=== PATIENT | female | born 1995 | race Caucasian/White ===

== ENCOUNTER 2016-09-22 15:46 | Emergency (ER) | payer MEDICAID ==
--- NOTE | 2016-09-22 22:12 | ER ---
ADMIT: 09/22/2016 RM/LOC: ER [facility] MR#: [id number] [address] [address] JOO DOMINIQUE [address] [place] [address] Emergency Room Report SEX: F AGE: 21 : 1995 DATE: 09/22/2016 HISTORY OF PRESENT ILLNESS: The patient is a 21-year-old female with past medical history of mood disorder, on Seroquel; came to the ER with chief complaint of lightheadedness while working long hours. The patient states she is 18 weeks and should be followed up by Clinic. The patient denies any fall, chest pain, shortness of breath, palpitation, vaginal bleeding or vaginal discharge, dysuria, urgency, frequency, passage of tissue from the vagina. The patient also denies any swelling of the extremities. PHYSICAL EXAMINATION: VITAL SIGNS: The patient has stable vitals, in no pain or distress, lying flat, afebrile. HEAD AND NECK: Normal. CHEST: Clear with normal heart sounds. ABDOMEN: Soft. The patient had heart rate which was normal. No swelling in the lower extremities. Urine was positive for multiple white blood cell, suggestive of urinary tract infection. The patient tolerated p.o., was in no distress. The patient was discharged to home with return precautions, prescription for Keflex p.o. and follow up with the primary doctor and Care. Gideon Archer MD/ gordon JOB #: [id number] CC: Mick Woods MD, Attending Physician Charlette Graham, PROGRAM WRITER-SHOWROOM SALESPERSON, Family Physician
== END 2016-09-22 17:10 | disposition home or self-care (01) ==
LOC: ER 15:46
DX: O23.42 Unspecified infection of urinary tract in pregnancy, second trimester (principal); R55 Syncope and collapse; O99.332 Smoking (tobacco) complicating pregnancy, second trimester; Z3A.18 18 weeks gestation of pregnancy; Z79.899 Other long term (current) drug therapy

== ENCOUNTER 2016-09-26 22:11 | Emergency (ER) | payer MEDICAID ==
--- NOTE | 2016-09-27 19:08 | ER ---
ADMIT: 09/26/2016 RM/LOC: ER [facility] MR#: [id number] [address] [address] JOO DOMINIQUE [address] [place] [address] Emergency Room Report SEX: F AGE: 21 : 1995 DATE: 09/26/2016 HISTORY OF PRESENT ILLNESS: The patient is a 19-week female, who had been recently treated for UTI with cephalexin, but she thinks that she still have the infection. She has had some nausea and vomiting throughout her , was given Unisom and vitamin B6, but it has not helped her much. REVIEW OF SYSTEMS: She has problems urinating. She takes Seroquel. She is a smoker 1/4 pack a day. PHYSICAL EXAMINATION: ABDOMEN: No tenderness in the belly except on the right upper quadrant. SKIN: Good color and turgor. EXTREMITIES: Well perfused. NEUROLOGIC: Oriented x4. VITAL SIGNS: Within normal limits. CLINICAL IMPRESSION: 1. Urinary tract infection. 2. Hyperemesis. Given Zofran ODT and also nitrofurantoin. Discharged home with instruction. See T-sheet. LA NENA Salinas / Adan Archer MD / sheylal JOB #: [id number] CC: Adan Archer MD, Attending Physician Charlette Graham, Family Physician
== END 2016-09-27 00:40 | disposition home or self-care (01) ==
LOC: ER 22:11
DX: O23.42 Unspecified infection of urinary tract in pregnancy, second trimester (principal); O21.0 Mild hyperemesis gravidarum; O99.332 Smoking (tobacco) complicating pregnancy, second trimester; Z3A.19 19 weeks gestation of pregnancy; Z79.899 Other long term (current) drug therapy

== ENCOUNTER 2016-12-31 15:00 | Outpatient (CLI) | payer MEDICAID ==
[~2016-12-31] VITALS: Ht 160 cm; Wt 78.5 kg
--- NOTE | 2017-01-14 07:37 | HP ---
ADMIT: 12/31/2016 RM/LOC: 214 [facility] MR#: [id number] [address] [address] JENNIFER JOO BRODERICK Cleo [address] [place] [address] History and Physical SEX: F AGE: 21 : 1995 DATE OF SERVICE: CHIEF COMPLAINT: Green vaginal discharge. HISTORY OF PRESENT ILLNESS: The patient is a 21-year-old, 1 female at 33 weeks' gestation, who [facility] with green vaginal discharge apparently in copious amounts. She was evaluated for possible leakage of fluid with meconium staining fluid and had a negative AmniSure. We did a cath UA as well as she had just gotten off antibiotics for a UTI and that was normal. While here, she started having contractions and complaining of more pain and was rating them a 6/10. Have not really settled down with oral or IV hydration. She has not had any spotting or bloody show. Baby has been very active. 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 She was brought to court though and has been on drug court since and has not used since she found out she was . She has been getting care through the [facility] with Dr. Lara and nurse practitioner there. States she has had a normal course. We do not have any of those records, however. She is otherwise in good health. MEDICATIONS: vitamins. ALLERGIES: NO KNOWN DRUG ALLERGIES. SOCIAL HISTORY: Again, the drug use in the first trimester. Apparently, she was in [facility] for speaking with her fiance, who is the father of the baby. They actually released her from custody while she has been here this evening. REVIEW OF SYSTEMS: Negative other than the above. PHYSICAL EXAMINATION: VITAL SIGNS: The patient is afebrile. Vitals are all normal. Cervix is closed. No blood is noted. No pooling of fluid. She does have a whitish green vaginal discharge, and the vaginal mucosa looks a little inflamed. She is marcy irregular on tocometry and rates about a 6/10. ADMIT: 12/31/2016 RM/LOC: 214 [facility] MR#: [id number] [address] [address] JOO DOMINIQUE [address] [place] [address] History and Physical SEX: F AGE: 21 : 1995 heart tones are 130s and category I. ASSESSMENT: 1. A 33-week intrauterine . 2. contractions. 3. Vaginal discharge. PLAN: We will monitor now that she has had IV fluids. We will check a cervical length by ultrasound. If that is greater than 3, we will let her go home. If it is less than 3, we will render fibronectin and make recommendations after that. Can treat any infection that is noted on her wet mount and chlamydia swabs. Nika Hawkins MD/ gordon JOB #: [id number] CC: Nika Hawkins MD, Attending Physician Nika Hawkins MD, Family Physician
== END 2016-12-31 23:15 | disposition home or self-care (01) ==
LOC: BC 15:00 → 2LDRP 15:00 → BC 23:15
DX: O60.03 Preterm labor without delivery, third trimester (principal); O99.89 Other specified diseases and conditions complicating pregnancy, childbirth and the puerperium; N89.8 Other specified noninflammatory disorders of vagina; Z3A.33 33 weeks gestation of pregnancy

== ENCOUNTER 2017-01-04 02:35 | Outpatient (CLI) | payer MEDICAID ==
--- NOTE | 2017-01-07 10:15 | HP ---
ADMIT: 01/04/2017 RM/LOC: [facility] MR#: [id number] [address] [address] JOO DOMINIQUE [address] [place] [address] History and Physical SEX: F AGE: 21 : 1995 DATE OF SERVICE: INTERIM HISTORY AND PHYSICAL: Please see Dr. Hawkins's dictation from 12/31/2016. CHIEF COMPLAINT: Vaginal bleeding. CLINICAL HISTORY: The patient is a 21-year-old, white female, primigravida, city call OB patient. She is usually followed by the [facility] and plans on delivering at [facility] with Dr. Lara. She is being followed at the [facility]. She is currently 33-1/2 weeks' gestational age. Notes that she was in the birthing center earlier this week on 12/31/2016. Sent to the birthing center at that time because of vaginal discharge. She was evaluated by Dr. Hawkins at that time. She has been having some intermittent vaginal bleeding off and on over the last month usually just spotting. She has been told by her provider at [facility] that the bleeding got heavier that she should just go to the emergency room or birthing center here at [place] to be evaluated. She comes in at 2:00 a.m. in the morning complaining that she had awoke and there was a small amount of old brownish blood and a little bit of bright red blood on the pad that she was wearing. She also notes she continues to have some ongoing discharge much the same as she has had when seen on 12/31/2016. She was admitted to the birthing Center for observation. Because of her vaginal bleeding, it was felt best to proceed with urgent OB ultrasound to rule out possible placenta previa and/or placenta abruption. For past medical history and other history related to her current , I refer you to the H and P from 12/31/2016. On her review of systems are no other new concerns. Do note past history of previous drug abuse. She did have negative fibronectin when seen here on 12/31/2016. She also had STD screens including GC and chlamydia at that time. PHYSICAL EXAMINATION: GENERAL: At this time, the patient is a very healthy- appearing 21-year-old, young adult female. She is in no acute distress. VITAL SIGNS: She is afebrile. Blood pressure is normal. ENT: Brief general exam revealed ENT exam to be negative. LUNGS: Clear. HEART: Regular rhythm. ABDOMEN: Consistent with a 33- to 34-week . She is having some mild intermittent contractions. GENITOURINARY: She is noted to have some significant vulvar irritation. Vaginal exam was not repeated. OB ultrasound showed no evidence of previa, no evidence of placenta abruption. Normal amniotic fluid volume. She has a grade 3 placenta. EXTREMITIES: Today had no edema. NEUROLOGIC: She is intact. Reflexes 2+. LABORATORY DATA: A urinalysis done in the birthing center today is obviously infected with 3+ leukocyte esterase and 74 wbc's per high-power field. ADMIT: 01/04/2017 RM/LOC: [facility] MR#: [id number] [address] [place] [id number] JOO DOMINIQUE [address] [place] [address] History and Physical SEX: F AGE: 21 : 1995 ASSESSMENT: 1. Intrauterine , currently at 33-1/2 weeks. 2. Acute urinary tract infection. 3. Irritable uterus. 4. Third trimester vaginal bleeding suspected cervical bleeding and/or vaginal irritation associated with her rather intense vaginitis. PLAN: I encouraged her to follow up with her provider at [facility] within the next 2 to 3 days. We did start her on Keflex 500 mg 2 b.i.d. for the next 10 days. Encouraged her to push fluids. It was noted on her OB ultrasound that she has a grade 3 placenta. Suggested she discuss this with her provider at the [facility]. Encouraged her to get set up for some routine nonstress testing. Conor Aguilar MD/ gordon JOB #: [id number] CC: Conor Aguilar MD, Attending Physician Conor Aguilar MD, Family Physician
== END 2017-01-04 10:55 | disposition home or self-care (01) ==
LOC: BC 02:35 → 2LDRP 02:35 → BC 10:55
DX: O46.93 Antepartum hemorrhage, unspecified, third trimester (principal); Z3A.33 33 weeks gestation of pregnancy

== ENCOUNTER 2017-01-12 13:25 | Outpatient (CLI) | payer MEDICAID | END 2017-01-12 16:25 | disposition home or self-care (01) | LOC: 2LDRP 13:25 → BC 13:25 | DX: O99.89 Other specified diseases and conditions complicating pregnancy, childbirth and the puerperium (principal); R10.30 Lower abdominal pain, unspecified; R19.7 Diarrhea, unspecified; Z3A.34 34 weeks gestation of pregnancy ==

== ENCOUNTER 2017-01-16 22:10 | Outpatient (CLI) | payer MEDICAID | END 2017-01-17 01:45 | disposition home or self-care (01) | LOC: 2LDRP 22:10 → BC 22:10 | DX: O47.03 False labor before 37 completed weeks of gestation, third trimester (principal); Z3A.35 35 weeks gestation of pregnancy ==